=== PATIENT | male | born 1960 | race Caucasian/White ===

== ENCOUNTER → 2024-09-12 13:26 | Outpatient (REF) | payer MEDICARE, OTHER, SELFPAY ==
[2024-09-12 14:36] LABS: % Basophils 0.4 % (0-2); % Eosinophils 2.7 % (0-6); % Immature Granulocytes 0.3 % (0-0.5); % Lymphocytes 30.2 % (20.5-51.1); % Monocytes 9.9 % (1.7-9.3); % Neutrophils 56.5 % (42.2-75.2); Absolute Eosinophils 0.2 10^3/uL (0-0.7); Absolute Lymphocytes 2.1 10^3/uL (1.2-3.4); Absolute Monocytes 0.7 10^3/uL (0.1-0.6); Hematocrit 48.8 % (39.0-52.0); Hemoglobin 17.3 g/dL (13.0-18.0); Mean Corp Hgb Conc. 35.5 g/dL (33.0-37.0); Mean Corpuscular Hgb 30.4 pg (27.0-31.0); Mean Corpuscular Volume 85.6 fL (80.0-94.0); Mean Platelet Volume 9.1 fL (7.4-10.4); Nucleated Red Blood Cells % 0 % (-); Platelet Count 265 10^3/uL (130-400); Red Cell Dist. Width 13.3 % (11.5-14.5); White Blood Cell Count 7.1 10^3/uL (4.8-10.8)
[2024-09-12 15:15] LABS: Blood Urea Nitrogen 26 mg/dl (9-20); Calcium 9.8 mg/dl (8.4-10.2); Carbon Dioxide 26 mmol/L (22-30); Chloride 104 mmol/L (98-107); Glucose 112 mg/dl (70-99); Potassium 4.6 mmol/L (3.5-5.1); Sodium 139 mmol/L (135-145); eGFR 55.78
== END ==
LOC: REG 13:26
PROVIDERS: ATTENDING PHYSICIAN Orthopaedic Surgery
DX: Z01.818 Encounter for other preprocedural examination (principal)
CPT/HCPCS: 36415; 80048; 85025; 93005

== ENCOUNTER → 2025-06-19 08:02 | Outpatient (REF) | payer MEDICARE, OTHER, SELFPAY | LOC: HWRAD 08:02 | PROVIDERS: ATTENDING PHYSICIAN Family Medicine | DX: Z13.6 Encounter for screening for cardiovascular disorders (principal) | CPT/HCPCS: 75571 ==

== ENCOUNTER → 2025-07-05 09:04 | Outpatient (REF) | payer MEDICARE, OTHER, SELFPAY ==
--- NOTE | 2025-07-05 10:40 | CARDSERVDEF ---
Echocardiogram with Definity completed after protocol screening completed. Allergies verified.
Patent IV site: _Left wrist 22 G pc____
IV site flushed with 0.9% NaCl pre and post administration.
Diluted bolus method utilized to enhance visualization of ventricular davila.
Total volume given: _6___ mL
Patient tolerated all procedures well without complications.
Heplock D/C ed at 1018 , site clear, no redness, no edema. Pressure held, no bleeding, 2x2 applied and taped. Pt offers no complaints.
== END ==
LOC: RCS 09:04
PROVIDERS: ATTENDING PHYSICIAN Internal Medicine Cardiovascular Disease; FAMILY PHYSICIAN Family Medicine
DX: R06.02 Shortness of breath (principal); R06.09 Other forms of dyspnea
CPT/HCPCS: 93017; 93350; Q9957

== ENCOUNTER → 2025-07-08 09:00 | Outpatient (REF) | payer MEDICARE, OTHER, SELFPAY | LOC: DHSLP 09:00 | PROVIDERS: ATTENDING PHYSICIAN Family Medicine | DX: G47.33 Obstructive sleep apnea (adult) (pediatric) (principal); R09.02 Hypoxemia | CPT/HCPCS: 95800 ==